=== PATIENT | female | born 1980 | race Caucasian/White ===

== ENCOUNTER → 2018-06-21 | Outpatient (REF) | payer OTHER | LOC: M SFHCCAPE 11:01 | PROVIDERS: ATTEND Physician Assistant | DX: R19.7 Diarrhea, unspecified (principal) ==

== ENCOUNTER 2018-08-16 13:07 | Emergency (ER) | payer OTHER ==
[~2018-08-16] VITALS: Ht 172.7 cm; Wt 68.2 kg
[2018-08-16] MEDS ORDERED: SERT-155 OR (13:22)
[2018-08-16 13:45] LABS: BASO % 0.1 % (0.0-1.0); EOS % 0.3 % (0.0-3.0); HEMATOCRIT 42.5 % (36.0-47.0); HEMOGLOBIN 14.5 g/dl (12.0-15.5); LYMPH # 0.3 10^3/uL (1.5-4.5); LYMPH % 4.5 % (24.0-44.0); MEAN CORPUSCULAR HEMOGLOBIN 31.3 pg (27.0-33.0); MEAN CORPUSCULAR HGB CONC 34.1 g/dl (32.0-36.5); MEAN CORPUSCULAR VOLUME 91.8 fl (80.0-96.0); MONO # 0.3 10^3/uL (0.0-0.8); MONO % 4.6 % (0.0-5.0); NEUTROPHILS # 6.1 10^3/uL (1.8-7.7); NEUTROPHILS % 90.4 % (36.0-66.0); PLATELET COUNT, AUTOMATED 143 10^3/uL (150-450); RED BLOOD COUNT 4.63 10^6/uL (4.00-5.40); WHITE BLOOD COUNT 6.7 10^3/uL (4.0-10.0)
[2018-08-16 14:09] LABS: ALBUMIN 3.8 GM/DL (3.2-5.2); ALT/SGPT 22 U/L (12-78); BILIRUBIN,DIRECT 0.2 MG/DL (0.0-0.2); BLOOD UREA NITROGEN 24 MG/DL (7-18); CALCIUM LEVEL 8.2 MG/DL (8.5-10.1); CARBON DIOXIDE LEVEL 29 MEQ/L (21-32); CHLORIDE LEVEL 106 MEQ/L (98-107); CREATININE FOR GFR 0.78 MG/DL (0.55-1.30); GLOMERULAR FILTRATION RATE > 60.0 (>60); GLUCOSE, FASTING 115 MG/DL (70-100); LIPASE 109 U/L (73-393); POTASSIUM SERUM 4.3 MEQ/L (3.5-5.1); SODIUM LEVEL 141 MEQ/L (136-145); TOTAL PROTEIN 7.1 GM/DL (6.4-8.2)
[2018-08-16 14:19] LABS: HCG, SERUM QUALITATIVE NEGATIVE (NEGATIVE)
[2018-08-16] MEDS ORDERED: NS 1,000 ML IV ONE (14:45)
[2018-08-16] MEDS ORDERED: ONDANSETRON 4MG/2ML VIAL (J2405) IV ONE (14:45)
[2018-08-16] MEDS ORDERED: ISOVUE-370 76% 100ML VIAL (Q9967) As Ordered ONE (14:47)
[2018-08-16] MEDS ORDERED: ONDA4TAB6 PO (15:33)
--- NOTE | 2018-08-16 15:54 | REP ---
CT abdomen and pelvis with IV but without oral contrast: History: Diffuse abdomen pain. Palpable aorta. CT contrast dose: 100 mL of intravenous Isovue 370 is administered. No comparison study. CT findings: Digital preliminary ophthalmic medical technologist radiograph demonstrates cardiac pacemaker in place. Clothing artifact is seen overlying the central abdomen and pelvis. Axial images at the lung bases show the lung bases are clear. The liver and the spleen are normal in size and homogeneous in texture. No abnormality is noted in the gallbladder or in the pancreas. No adrenal abnormalities observed. The kidneys enhance symmetrically and are morphologically intact. No retroperitoneal mass or adenopathy is appreciated. Normal-sized small bowel lymph nodes are noted. A normal caliber aorta is seen in this thin patient. The lumbar lordosis brings the aorta in close proximity with the anterior abdominal wall. Small and large intestinal bowel loops are unremarkable. A normal short but noninflamed appendix is seen at the cecal tip. A vaginal tampon is noted. No uterine or ovarian abnormality is appreciated. The left gonadal vein is slightly prominent and is seen enhancing. This may correlate with pelvic congestion symptoms. The urinary bladder is empty but appears intact. No abdominal wall defect is seen. Bone window settings show no acute bony abnormality. 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 Impression: Cardiac pacemaker leads noted. Slightly prominent gonadal vein on the left may correlate with pelvic congestion symptoms. Otherwise negative CT abdomen and pelvis with IV contrast. Normal appendix. Normal caliber aorta. Electronically Signed by Raffy Pedersen MD 08/16/2018 03:59 P
[2018-08-16 16:34] VITALS: BP 115/54
== END 2018-08-16 17:30 | disposition home or self-care (01) ==
LOC: M ED 13:07
DX: E86.0 Dehydration (principal); R10.84 Generalized abdominal pain; R11.2 Nausea with vomiting, unspecified; R00.1 Bradycardia, unspecified; Z95.0 Presence of cardiac pacemaker; M47.816 Spondylosis without myelopathy or radiculopathy, lumbar region; Z88.2 Allergy status to sulfonamides; Z79.899 Other long term (current) drug therapy
CPT/HCPCS: 74177; 80048; 80076; 81001; 83690; 84703; 85025; 96361; 96374; 99284; J2405; Q9967

== ENCOUNTER → 2019-02-20 | Outpatient (REF) | payer OTHER ==
[~2019-02-20] MED LIST: ONDA4TAB6 PO; SERT50TA29 OR
[2019-02-20 17:33] LABS: APPEARANCE, URINE CLEAR (CLEAR); BACTERIA, URINE AUTO NEGATIVE (NEGATIVE); BILIRUBIN, URINE AUTO NEGATIVE (NEGATIVE); BLOOD, URINE BLOOD 1+ (NEGATIVE); COLOR, URINE STRAW (YELLOW); GLUCOSE, URINE (UA) AUTO NEGATIVE (NEGATIVE); KETONE, URINE AUTO NEGATIVE (NEGATIVE); LEUKOCYTE ESTERASE, URINE AUTO NEGATIVE (NEGATIVE); NITRITE, URINE AUTO NEGATIVE (NEGATIVE); PROTEIN, URINE AUTO NEGATIVE (NEGATIVE); RBC, URINE AUTO 1 /HPF (0-3); SPECIFIC GRAVITY URINE AUTO 1.006 (1.002-1.035); SQUAMOUS EPITHELIAL CELL UR AU 0 /HPF (0-6); UROBILINOGEN, URINE AUTO 0.2 mg/dL (0.0-2.0); WBC, URINE AUTO 0 /HPF (0-3)
[2019-02-20 17:46] LABS: ALBUMIN 3.9 GM/DL (3.2-5.2); ALT/SGPT 27 U/L (12-78); BILIRUBIN,TOTAL 0.2 MG/DL (0.2-1.0); BLOOD UREA NITROGEN 15 MG/DL (7-18); C REACTIVE PROTEIN QUANTITATIV < 0.30 MG/DL (0.00-0.30); CALCIUM LEVEL 8.5 MG/DL (8.5-10.1); CARBON DIOXIDE LEVEL 28 MEQ/L (21-32); CHLORIDE LEVEL 109 MEQ/L (98-107); COMPLEMENT C3 84 MG/DL (90-180); COMPLEMENT C4 16 MG/DL (10-40); CREATININE FOR GFR 0.74 MG/DL (0.55-1.30); FREE T4 0.73 NG/DL (0.76-1.46); GLOMERULAR FILTRATION RATE > 60.0 (>60); GLUCOSE, FASTING 88 MG/DL (70-100); POTASSIUM SERUM 4.2 MEQ/L (3.5-5.1); RHEUMATOID FACTOR QUANT < 10.0 IU/ML (<15.0); SODIUM LEVEL 141 MEQ/L (136-145); THYROID STIMULATING HORMONE 0.903 uIU/ML (0.358-3.740); TOTAL PROTEIN 6.5 GM/DL (6.4-8.2)
[2019-02-20 17:57] LABS: BASO # 0.1 10^3/uL (0.0-0.2); BASO % 1.1 % (0.0-1.0); EOS # 0.1 10^3/uL (0.0-0.5); EOS % 2.5 % (0.0-3.0); HEMATOCRIT 40.4 % (36.0-47.0); HEMOGLOBIN A1c 5.2 %; LYMPH # 1.7 10^3/uL (1.5-5.0); LYMPH % 30.3 % (24.0-44.0); MEAN CORPUSCULAR HEMOGLOBIN 29.9 pg (27.0-33.0); MEAN CORPUSCULAR HGB CONC 32.2 g/dl (32.0-36.5); MEAN CORPUSCULAR VOLUME 92.9 fl (80.0-96.0); MONO # 0.5 10^3/uL (0.0-0.8); MONO % 8.4 % (0.0-5.0); NEUTROPHILS # 3.2 10^3/uL (1.5-8.5); NEUTROPHILS % 57.5 % (36.0-66.0); PLATELET COUNT, AUTOMATED 157 10^3/uL (150-450); RED BLOOD COUNT 4.35 10^6/uL (4.00-5.40); WHITE BLOOD COUNT 5.6 10^3/uL (4.0-10.0)
[2019-02-20 23:32] LABS: ERYTHROCYTE SEDIMENTATION RATE 6 mm/hr (0-20)
[2019-02-23 00:06] LABS: ANA (HEP2) Negative (.); CYCLIC CITRULLINATED PEPTIDE 7 units (0-19)
== END ==
LOC: M SFHCCAPE 10:42
PROVIDERS: ATTEND Physician Assistant
DX: L29.9 Pruritus, unspecified (principal); I73.00 Raynaud's syndrome without gangrene

== ENCOUNTER → 2019-03-27 | Outpatient (REF) | payer OTHER ==
[2019-03-27 17:15] LABS: FREE T4 0.77 NG/DL (0.76-1.46); THYROID STIMULATING HORMONE 1.19 uIU/ML (0.358-3.740)
== END ==
LOC: M SFHCCAPE 08:48
PROVIDERS: ATTEND Physician Assistant
DX: D84.1 Defects in the complement system (principal); R94.6 Abnormal results of thyroid function studies

== ENCOUNTER → 2019-03-28 | Outpatient (CLI) | payer OTHER ==
--- NOTE | 2019-03-28 19:43 | REP ---
Left shoulder: Three views. History: Pain in the left shoulder. Findings: A bipolar pacemaker is seen in place via the left side. Glenohumeral and acromioclavicular joints are normally aligned. Periarticular soft tissues are unremarkable. Impression: Pacemaker noted. No acute bony abnormality. Electronically Signed by Raffy Pedersen MD 03/28/2019 07:35 P
--- NOTE | 2019-03-28 19:44 | REP ---
Left hip: Two views. History: Left hip pain. Findings: Femoral head is smooth and rounded and hip joint spaces preserved. Periarticular soft tissues are unremarkable. The visualized left hemipelvis is intact. Impression: Negative radiographs of the left hip. Electronically Signed by Raffy Pedersen MD 03/28/2019 07:36 P
== END ==
LOC: M CLY 10:02
PROVIDERS: ATTEND Physician Assistant
DX: G89.29 Other chronic pain (principal); M25.552 Pain in left hip

== ENCOUNTER → 2020-03-19 | Outpatient (REF) | payer OTHER ==
[2020-03-19 12:03] LABS: HEMATOCRIT 44.6 % (36.0-47.0); HEMOGLOBIN 14.4 g/dl (12.0-15.5); LYMPH % 37.5 % (24.0-44.0); MEAN CORPUSCULAR HEMOGLOBIN 29.8 pg (27.0-33.0); MEAN CORPUSCULAR HGB CONC 32.3 g/dl (32.0-36.5); MEAN CORPUSCULAR VOLUME 92.1 fl (80.0-96.0); MONO % 9.1 % (0.0-5.0); NEUTROPHILS % 49.3 % (36.0-66.0); PLATELET COUNT, AUTOMATED 168 10^3/uL (150-450); RED BLOOD COUNT 4.84 10^6/uL (4.00-5.40); WHITE BLOOD COUNT 5.4 10^3/uL (4.0-10.0)
[2020-03-19 12:04] LABS: BASO # 0.1 10^3/uL (0.0-0.2); BASO % 1.1 % (0.0-1.0); EOS # 0.2 10^3/uL (0.0-0.5); MONO # 0.5 10^3/uL (0.0-0.8); NEUTROPHILS # 2.7 10^3/uL (1.5-8.5)
[2020-03-19 12:34] LABS: ERYTHROCYTE SEDIMENTATION RATE 5 mm/hr (0-20)
[2020-03-19 12:48] LABS: ALBUMIN 4.2 GM/DL (3.2-5.2); ALT/SGPT 16 U/L (12-78); BILIRUBIN,TOTAL 0.5 MG/DL (0.2-1.0); BLOOD UREA NITROGEN 21 MG/DL (7-18); CARBON DIOXIDE LEVEL 30 MEQ/L (21-32); CHLORIDE LEVEL 105 MEQ/L (98-107); COMPLEMENT C3 89 MG/DL (90-180); COMPLEMENT C4 18 MG/DL (10-40); FREE T4 0.87 NG/DL (0.76-1.46); GLOMERULAR FILTRATION RATE > 60.0 (>60); GLUCOSE, FASTING 88 MG/DL (70-100); IMMUNOGLOBULIN G 1040 MG/DL (681-1648); POTASSIUM SERUM 4.5 MEQ/L (3.5-5.1); RHEUMATOID FACTOR QUANT < 10.0 IU/ML (<15.0); SODIUM LEVEL 138 MEQ/L (136-145)
[2020-03-19 13:26] LABS: FOLATE 14.9 NG/ML; HEPATITIS C VIRUS ABY INDEX 0.1 INDEX (<0.8); HIV 1&2 SCREEN CENTAUR NEGATIVE (NEGATIVE); VITAMIN B12 LEVEL 425 PG/ML
[2020-03-24 00:10] LABS: ANA (HEP2) Negative (.); CARDIOLIPIN IGA ANTIBODY <9 APL U/mL (0-11); CARDIOLIPIN IGG ANTIBODY <9 GPL U/mL (0-14); CARDIOLIPIN IGM ANTIBODY 20 MPL U/mL (0-12); CYCLIC CITRULLINATED PEPTIDE 5 units (0-19); Lyme Disease IgG Ab 18 kDa Ban Absent (.); Lyme Disease IgG Ab 23 kDa Ban Absent (.); Lyme Disease IgG Ab 28 kDa Ban Absent (.); Lyme Disease IgG Ab 30 kDa Ban Absent (.); Lyme Disease IgG Ab 39 kDa Ban Absent (.); Lyme Disease IgG Ab 41 kDa Ban Present (.); Lyme Disease IgG Ab 45 kDa Ban Absent (.); Lyme Disease IgG Ab 58 kDa Ban Absent (.); Lyme Disease IgG Ab 66 kDa Ban Absent (.); Lyme Disease IgG Ab 93 kDa Ban Absent (.); Lyme Disease IgG West Blot Int Negative (.); Lyme Disease IgG/IgM Antibodie <0.91 ISR (0.00-0.90); Lyme Disease IgM Ab 23 kDa Ban Present (.); Lyme Disease IgM Ab 39 kDa Ban Present (.); Lyme Disease IgM Ab 41 kDa Ban Absent (.); Lyme Disease IgM Ab Quantitati 0.97 index (0.00-0.79); Lyme Disease IgM West Blot Int Positive (.)
[2020-03-24 12:03] LABS: ALBUMIN 4.53 GM/DL (3.29-5.55); ALBUMIN % 64.7 % (55.8-66.1); ALPHA-1-GLOBULIN % 3.3 % (2.9-4.9); ALPHA-1-GLOBULINS 0.23 GM/DL (0.17-0.41); ALPHA-2-GLOBULINS % 7.2 % (7.1-11.8); BETA-1-GLOBULINS 0.35 GM/DL (0.28-0.60); BETA-2-GLOBULINS 0.29 GM/DL (0.19-0.55); BETA-2-GLOBULINS % 4.1 % (3.2-6.5); GAMMA GLOBULIN % 15.7 % (11.1-18.8)
== END ==
LOC: M SFHCCLAY 07:47
PROVIDERS: ATTEND Physician Assistant
DX: L29.9 Pruritus, unspecified (principal); R53.83 Other fatigue

== ENCOUNTER → 2020-03-19 | Outpatient (CLI) | payer OTHER ==
--- NOTE | 2020-03-19 08:38 | REP ---
INDICATION: PRURITUS/FATIGUE COMPARISON: 06/07/2006 TECHNIQUE: PA and lateral. FINDINGS: The mediastinum and cardiac silhouette are normal. Pacemaker in satisfactory position. The lung chin are clear and without acute consolidation, effusion, or pneumothorax. The skeletal structures are intact and normal. IMPRESSION: No acute cardiopulmonary process. <Electronically signed by Bethel Arshad > 03/19/20 [id number]
== END ==
LOC: M CLY 08:01
PROVIDERS: ATTEND Physician Assistant
DX: L29.9 Pruritus, unspecified (principal); R53.83 Other fatigue

== ENCOUNTER → 2020-04-17 | Outpatient (CLI) | payer SELFPAY | LOC: M LABSMTC 09:50 | PROVIDERS: ATTEND Pediatrics | DX: Z20.822 Contact with and (suspected) exposure to COVID-19 (principal) ==

== ENCOUNTER → 2024-12-05 | Outpatient (REF) | payer OTHER ==
[~2024-12-05] MED LIST changes: +ONDA-282 PO; -ONDA4TAB6 PO
== END ==
LOC: M SFHCCLAY 07:51
PROVIDERS: ATTEND Physician Assistant
DX: Z00.00 Encounter for general adult medical examination without abnormal findings (principal); I95.1 Orthostatic hypotension; Z95.0 Presence of cardiac pacemaker; Z12.31 Encounter for screening mammogram for malignant neoplasm of breast; Z53.9 Procedure and treatment not carried out, unspecified reason